=== PATIENT | male | born 1995 | race Caucasian/White ===

== ENCOUNTER 2017-01-26 18:34 | Emergency (ER) | payer SELFPAY ==
[2017-01-26 18:54] VITALS: BP 140/80; BMI 21.1
--- NOTE | 2017-01-26 19:45 | DR.GENAD ---
HPI - PCP Primary Care Physician: MOHAN - Complaint/Symptoms Chief Complaint:: PATIENT STATED HIS PACEMAKER FIRED THREE TIMES YESTERDAY AND ONCE TODAY. 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 - Nurses notes reviewed Nurses Notes Review: Yes - Source History Provided: Patient - Mode of Arrival Mode of Arrival: Ambulatory - Timing Onset of Chief Complaint: 01/25/17 Came on: Suddenly - Duration Duration: Intermittent Duration: Days - Severity Severity: Moderate PMH - PMH Past Medical History: Yes Past Medical History Comment: CARDIAC ARREST Past Surgical History: Yes Past Surgical History Comment: PACEMAKER - Family History History of Family Medical Conditions: Yes Family Medical History: Hypertension - Social History Does patient currently use any type of tobacco product: Yes Have you used tobacco products in the last 12 months: Yes Type of Tobacco Use: Cigarettes Does any household member use tobacco: No Alcohol Use: None Do you use any recreational Drugs:: No Lives With: Family Lives Where: Home - infectious screening In the last 2 months have you had wt loss of >10#?: NO Have you had fever, night sweats or hemotysis?: No Have you traveled outside the country in the last 6 months?: No Isolation: Standard PE - Vital Signs Vitals: Temperature 99 F Pulse Rate [Right Radial] 79 Pulse Rate 76 Respiratory Rate 18 Blood Pressure [Right Arm] 140/80 Blood Pressure 128/63 O2 Sat by Pulse Oximetry 94 - Discharge Plan Disposition: AGAINST MEDICAL ADVICE Condition: Stable - Follow ups/Referrals Follow ups/Referrals: NFD,None [Primary Care Provider] - 3 days - Instructions
== END 2017-01-26 19:55 | disposition left against medical advice (07) ==
LOC: ER 18:49
DX: Z95.0 Presence of cardiac pacemaker (principal)
CPT/HCPCS: 93005; 93010; 99282